=== PATIENT | female | born 1980 | race Caucasian/White ===

== ENCOUNTER 2022-08-30 10:38 | Outpatient (CLI) | payer OTHER, SELFPAY ==
--- NOTE | 2022-08-30 11:41 | W.ANESCHARGE ---
Anesthesia Charges Start Date/Time Anesthesia Start Date: 08/30/22 Anesthesia Start Time: 11:10 Stop Date/Time Anesthesia Stop Date: 08/30/22 Anesthesia Stop Time: 11:38 Summary Emergency: No
== END 2022-08-30 10:39 | disposition home or self-care (01) ==
PROVIDERS: Visit Provider Internal Medicine Gastroenterology
DX: K92.1 Melena (principal); K51.90 Ulcerative colitis, unspecified, without complications; Z87.19 Personal history of other diseases of the digestive system
CPT/HCPCS: 00811; 45380; 88305; 88342; J2704

== ENCOUNTER 2023-07-07 15:00 | Outpatient (RCR) | payer OTHER, SELFPAY ==
--- NOTE | 2023-01-06 11:19 | URNOTE ---
Received request for prior auth for Entarpan ([id number]). This has been approved 01/22/2023-01/23/2024 for 2700mg or 9 doses. Auth #[id number]
[2023-02-01 13:00] VITALS: BP 118/80; PULSE 75; RESP 14; TEMP 36.7; O2SAT 100
[2023-02-15 14:22] VITALS: BP 112/75; PULSE 68; RESP 16; TEMP 36.5; O2SAT 100
[2023-03-15 14:16] VITALS: BP 126/76; PULSE 69; RESP 16; TEMP 36.9; O2SAT 97
[2023-05-12 14:21] VITALS: BP 119/73; PULSE 75; RESP 16; TEMP 36.7; O2SAT 97
--- NOTE | 2023-06-29 13:08 | ONC.NURNOTE ---
Sharee left a voicemail stating to cancel her appointment/not to reschedule.
== END 2023-07-31 23:59 | disposition home or self-care (01) ==
LOC: CCIC 15:00
PROVIDERS: Visit Provider Internal Medicine Gastroenterology
DX: K51.90 Ulcerative colitis, unspecified, without complications (principal)
CPT/HCPCS: 96365; J3380; J7050